=== PATIENT | female | born 1955 | race Caucasian/White ===

== ENCOUNTER 2018-07-13 17:35 | Emergency (ER) | payer OTHER ==
[2018-07-13] MEDS ORDERED: FENTANYL CITR 100 MCG/2 ML ONE (17:48)
[2018-07-13] MEDS ORDERED: ONDANSETRON 4 MG/2 ML VIAL ONE (17:48)
[2018-07-13] MEDS ORDERED: NA CHLORIDE 0.9% 1,000 ML ONE (17:49)
[2018-07-13] MEDS ORDERED: ETOMIDATE 20 MG/10 ML VIAL IV ONE (18:34)
--- NOTE | 2018-07-13 19:38 | RAD REPORT ---
EXAM DESCRIPTION: RAD - Wrist Right 3 View - 07/13/2018 6:08 pm CLINICAL HISTORY: Fall, wrist pain COMPARISON: None. FINDINGS: Transverse fracture of the distal radius is present. There is significant dorsal displacem ent and angulation of the radius fracture fragment. Carpal bones maintain normal positioning to the d isplaced distal fracture fragment. Ulna styloid is fractured. No carpal bone fracture. No foreign bod y. IMPRESSION: Distal radius fracture with significant dorsal displacement and angulation deformity. Ulna styloid fracture.
--- NOTE | 2018-07-13 19:38 | RAD REPORT ---
EXAM DESCRIPTION: RAD - Knee Right 3 View - 07/13/2018 6:09 pm CLINICAL HISTORY: Fall, knee pain COMPARISON: None. FINDINGS: Patella and distal femur are intact.Moderate size lipohemarthrosis is present. Proximal ti trina is fractured. There is an oblique fracture plane creating a large medial tibial plateau fracture fragment. Fracture involves the tibial spine and lateral tibial plateau extending inferiorly into the metaphyseal diaphyseal junction. There is an additional oblique fracture line through the medial tib ia metaphysis. IMPRESSION: Proximal tibia fracture is present. Large fracture plane extends from the lateral tibial plateau near the tibial spine into the metaphyseal diaphyseal junction. Additional fracture plane ex tends obliquely in the medial metaphysis. Moderate sized lipoma hemarthrosis.
--- NOTE | 2018-07-13 19:44 | ER ---
Nurse's Notes [facility] Name: Angie Zuñiga Age: 63 yrs Sex: Female : 1955 Arrival Date: 07/13/2018 Time: 17:36 Bed 23 Private MD: Diagnosis: Displaced distal right radius fracture;Right proximal Tibial fracture Presentation: 07/13 17:37 Presenting complaint: EMS states: pt was helping a friend get out of the boat and fell tl3 back onto right arm. Transition of care: patient was not received from another setting of care. Onset of symptoms. Risk Assessment: Do you want to hurt yourself or someone else? Patient reports no desire to harm self or others. Initial Sepsis Screen: Does the patient meet any 2 criteria? No. Patient's initial sepsis screen is negative. Does the patient have a suspected source of infection? No. Patient's initial sepsis screen is negative. Care prior to arrival: None. 17:37 Method Of Arrival: EMS: [facility] tl3 17:37 Acuity: IMAN 3 tl3 Triage Assessment: 17:39 General: Appears uncomfortable, slender, well groomed, well developed, well nourished, tl3 Behavior is calm, cooperative, appropriate for age. Pain: Complains of pain in right arm. EENT: No signs and/or symptoms were reported regarding the EENT system. Neuro: Level of Consciousness is awake, alert, obeys commands, Oriented to person, place, time, situation, Appropriate for age. Cardiovascular: Capillary refill < 3 seconds in right fingers Patient's skin is warm and dry. Respiratory: Airway is patent Respiratory effort is even, unlabored, Respiratory pattern is regular, symmetrical. GI: No signs and/or symptoms were reported involving the gastrointestinal system. : No signs and/or symptoms were reported regarding the genitourinary system. Derm: No signs and/or symptoms reported regarding the dermatologic system. Musculoskeletal: Bony deformity noted of right forearm/wrist. 20:36 Injury Description: fall in boat. tl3 Historical: - Allergies: 17:39 No Known Allergies; tl3 - Home Meds: 17:39 lisinopril Oral [Active]; meloxicam oral oral [Active]; tl3 - PMHx: 17:39 Hypertension; tl3 - PSHx: 17:39 Hip Replacement; tl3 - Immunization history:: Adult Immunizations up to date. - Social history:: Smoking status: unknown. - Ebola Screening: : No symptoms or risks identified at this time. Screenin:00 Abuse screen: Denies threats or abuse. Nutritional screening: No deficits noted. tl3 Tuberculosis screening: No symptoms or risk factors identified. Fall Risk None identified. Assessment: 18:00 Reassessment: No changes from previously documented assessment. Patient is alert, tl3 oriented x 3, equal unlabored respirations, skin warm/dry/pink. 18:23 Reassessment: No changes from previously documented assessment. Patient and/or family tl3 updated on plan of care and expected duration. Pain level reassessed. Patient is alert, oriented x 3, equal unlabored respirations, skin warm/dry/pink. Zach at bedside discussing POC with patient and family. 18:41 Reassessment: No changes from previously documented assessment. Patient and/or family tl3 updated on plan of care and expected duration. Pain level reassessed. Patient is alert, oriented x 3, equal unlabored respirations, skin warm/dry/pink. Zach speaking to family about a transfer for possible surgery. 20:04 Reassessment: Patient appears in no apparent distress at this time. No changes from tl3 previously documented assessment. Patient and/or family updated on plan of care and expected duration. Pain level reassessed. Patient is alert, oriented x 3, equal unlabored respirations, skin warm/dry/pink. report called to Cecilia King RN. Vital Signs: 17:39 BP 105 / 61; Pulse 80; Resp 18; Pulse Ox 100% ; tl3 18:00 BP 107 / 70; Pulse 71; Resp 18; Pulse Ox 95% on R/A; tl3 18:23 BP 106 / 69; Pulse 78; Resp 18; Pulse Ox 98% ; tl3 18:41 BP 121 / 75; Pulse 80; Resp 18; Pulse Ox 100% ; tl3 20:04 BP 127 / 81; Pulse 82; Resp 18; Pulse Ox 99% ; tl3 ED Course: 17:36 Patient arrived in ED. tl3 17:37 Dot Waddell RN is Primary Nurse. tl3 17:38 Triage completed. tl3 17:39 Zach Garcia PA is PHCP. jr8 17:39 José Manuel Almaraz MD is Attending Physician. jr8 17:39 Arm band placed on left wrist. tl3 17:42 Inserted saline lock: 20 gauge in left forearm, using aseptic technique. ,using aseptic tl3 technique. per Valerie Blood collected. 18:00 Patient has correct armband on for positive identification. Bed in low position. Call tl3 light in reach. Side rails up X 1. Pulse ox on. NIBP on. 18:00 No provider procedures requiring assistance completed. X-ray(s) taken. tl3 18:04 X-ray completed. Portable x-ray completed in exam room. Patient tolerated procedure la2 well. 18:08 XRAY Wrist RIGHT 3 view In Process Unspecified. EDMS 18:08 XRAY Knee RIGHT 3 view In Process Unspecified. EDMS 18:41 Knee immobilizer applied on right knee. Pedal pulse present and within normal limits jb1 before and after application of knee immobilizer. Capillary refill was two seconds before and after application of knee immobilizer. 19:48 Orthoglass splint: Sugar tong splint applied on right arm. rg2 20:34 Verbal reassurance given. bedpan offered before leaving with EMS changed out of swim tl3 suit and put in a gown for comfort. 20:34 Patient transferred, IV remains in place. tl3 Administered Medications: 17:51 Drug: Zofran 4 mg Route: IVP; Site: left forearm; tl3 18:02 Follow up: Response: No adverse reaction tl3 17:51 Drug: NS 0.9% 1000 ml Route: IV; Rate: 75 ml/hr; Site: left forearm; Delivery: Primary tl3 tubing; 20:37 Follow up: IV Status: Completed infusion; IV Intake: 400ml tl3 17:52 Drug: fentaNYL (PF) 50 mcg Route: IVP; Infused Over: 2 mins; Site: left forearm; tl3 18:02 Follow up: Response: No adverse reaction; Pain is decreased tl3 18:44 CANCELLED (Physician Discretion): Etomidate 20 mg IVP once jr8 20:42 Drug: fentaNYL (PF) 50 mcg Route: IVP; Infused Over: 2 mins; Site: left antecubital; tl3 20:42 Follow up: Response: Medication administered at discharge. tl3 Intake: 20:37 IV: 400ml; Total: 400ml. tl3 Outcome: 19:44 ER care complete, transfer ordered by MD. santoro 20:34 Transferred to [facility]. tl3 20:34 Condition: stable 20:34 Instructed on the need for transfer, Demonstrated understanding of instructions. 20:43 Patient left the ED. tl3 Signatures: Dispatcher [employer] EDMS Zaki Styles [place] rg2 Zach Garcia PA PA jr8 Shira Wilson2 Dot Waddell, RN RN tl3
--- NOTE | 2018-07-13 19:44 | EDPHYS ---
Physician Documentation [facility] Name: Angie Zuñiga Age: 63 yrs Sex: Female : 1955 Arrival Date: 07/13/2018 Time: 17:36 Bed 23 Private MD: ED Physician José Manuel Almaraz HPI: 07/13 17:40 This 63 yrs old Female presents to ER via EMS with complaints of Wrist Injury, Knee jr8 Injury. 17:40 Onset: The symptoms/episode began/occurred acutely, today. Modifying factors: The jr8 symptoms are alleviated by nothing, the symptoms are aggravated by movement. Associated signs and symptoms: The patient has no apparent associated signs or symptoms. The patient has not experienced similar symptoms in the past. The patient has not recently seen a physician. Patient was helping with docking boat. Was helping friend out of boat and fell backwards. EMS called after fall for obvious deformity of right wrist. Complains of pain and swelling to right knee as well. Denies hitting head or neck. No LOC . Historical: - Allergies: 17:39 No Known Allergies; tl3 - Home Meds: 17:39 lisinopril Oral [Active]; meloxicam oral oral [Active]; tl3 - PMHx: 17:39 Hypertension; tl3 - PSHx: 17:39 Hip Replacement; tl3 - Immunization history:: Adult Immunizations up to date. - Social history:: Smoking status: unknown. - Ebola Screening: : No symptoms or risks identified at this time. ROS: 17:40 Eyes: Negative for injury, pain, redness, and discharge, ENT: Negative for injury, jr8 pain, and discharge, Neck: Negative for injury, pain, and swelling, Cardiovascular: Negative for chest pain, palpitations, and edema, Respiratory: Negative for shortness of breath, cough, wheezing, and pleuritic chest pain, Abdomen/GI: Negative for abdominal pain, nausea, vomiting, diarrhea, and constipation, Back: Negative for injury and pain, Skin: Negative for injury, rash, and discoloration, Neuro: Negative for headache, weakness, numbness, tingling, and seizure. 17:40 MS/extremity: Positive for decreased range of motion, deformity, pain, swelling, tenderness, of the right wrist and knee. Exam: 17:40 Head/Face: Normocephalic, atraumatic. Eyes: Pupils equal round and reactive to light, jr8 extra-ocular motions intact. Lids and lashes normal. Conjunctiva and sclera are non-icteric and not injected. Cornea within normal limits. Periorbital areas with no swelling, redness, or edema. ENT: Nares patent. No nasal discharge, no septal abnormalities noted. Tympanic membranes are normal and external auditory canals are clear. Oropharynx with no redness, swelling, or masses, exudates, or evidence of obstruction, uvula midline. Mucous membranes moist. Neck: Trachea midline, no thyromegaly or masses palpated, and no cervical lymphadenopathy. Supple, full range of motion without nuchal rigidity, or vertebral point tenderness. No Meningismus. Chest/axilla: Normal chest wall appearance and motion. Nontender with no deformity. No lesions are appreciated. Cardiovascular: Regular rate and rhythm with a normal S1 and S2. No gallops, murmurs, or rubs. Normal PMI, no JVD. No pulse deficits. Respiratory: Lungs have equal breath sounds bilaterally, clear to auscultation and percussion. No rales, rhonchi or wheezes noted. No increased work of breathing, no retractions or nasal flaring. Abdomen/GI: Soft, non-tender, with normal bowel sounds. No distension or tympany. No guarding or rebound. No evidence of tenderness throughout. Back: No spinal tenderness. No costovertebral tenderness. Full range of motion. Skin: Warm, dry with normal turgor. Normal color with no rashes, no lesions, and no evidence of cellulitis. Neuro: Awake and alert, GCS 15, oriented to person, place, time, and situation. Cranial nerves II-XII grossly intact. Motor strength 5/5 in all extremities. Sensory grossly intact. Cerebellar exam normal. Normal gait. 17:40 Musculoskeletal/extremity: Extremities: grossly normal except: noted in the right wrist: pain, swelling, tenderness, Decreased ROM due to deformity. Pulses present in wrist and 2+ with normal sensation. Brisk capillary refill present , noted in the right knee: pain, swelling, tenderness, No obvious deformity. Decreased ROM due to pain , Circulation is intact in all extremities. Sensation intact. Vital Signs: 17:39 BP 105 / 61; Pulse 80; Resp 18; Pulse Ox 100% ; tl3 18:00 BP 107 / 70; Pulse 71; Resp 18; Pulse Ox 95% on R/A; tl3 18:23 BP 106 / 69; Pulse 78; Resp 18; Pulse Ox 98% ; tl3 18:41 BP 121 / 75; Pulse 80; Resp 18; Pulse Ox 100% ; tl3 20:04 BP 127 / 81; Pulse 82; Resp 18; Pulse Ox 99% ; tl3 Procedures: 18:44 Splinting: Splint applied to right wrist using Orthoglass splint, applied by tech. jr8 nurse. Examined by me, post splint application: neurovascular intact, 2+ distal pulses palpable, brisk capillary refill noted, Patient tolerated well. 18:44 Splinting: Splint applied to right knee using knee immobilizer, applied by myself. jrAyah tech. Examined by me, post splint application: neurovascular intact, 2+ distal pulses palpable, brisk capillary refill noted, Patient tolerated well. MDM: 17:39 Patient medically screened. jr8 18:44 Data reviewed: vital signs, nurses notes, radiologic studies, plain films. Data jr8 interpreted: Pulse oximetry: on room air is 100 %. Interpretation: normal. Counseling: I had a detailed discussion with the patient and/or guardian regarding: the historical points, exam findings, and any diagnostic results supporting the discharge/admit diagnosis, radiology results, the need to transfer to another facility. ED course: Discussed case with Dr. Plaza. Patient should be transferred for further evaluation and not be sent home for follow up. 07/13 17:39 Order name: XRAY Wrist RIGHT 3 view; Complete Time: 19:40 8 07/13 17:39 Order name: XRAY Knee RIGHT 3 view; Complete Time: 19:40 jr8 07/13 17:39 Order name: IV; Complete Time: 17:58 jr8 Administered Medications: 17:51 Drug: Zofran 4 mg Route: IVP; Site: left forearm; tl3 18:02 Follow up: Response: No adverse reaction tl3 17:51 Drug: NS 0.9% 1000 ml Route: IV; Rate: 75 ml/hr; Site: left forearm; Delivery: Primary tl3 tubing; 20:37 Follow up: IV Status: Completed infusion; IV Intake: 400ml tl3 17:52 Drug: fentaNYL (PF) 50 mcg Route: IVP; Infused Over: 2 mins; Site: left forearm; tl3 18:02 Follow up: Response: No adverse reaction; Pain is decreased tl3 18:44 CANCELLED (Physician Discretion): Etomidate 20 mg IVP once jr8 20:42 Drug: fentaNYL (PF) 50 mcg Route: IVP; Infused Over: 2 mins; Site: left antecubital; tl3 20:42 Follow up: Response: Medication administered at discharge. tl3 Disposition: 07/14 09:21 Co-signature as Attending Physician, José Manuel Almaraz MD I agree with the assessment and mirza plan of care. Disposition: 07/13/18 19:44 Transfer ordered to [facility]. Diagnosis are Displaced distal right radius fracture, Right proximal Tibial fracture . - Reason for transfer: Higher level of care. - Accepting physician is Dr. Luna. - Condition is Stable. - Problem is new. - Symptoms have improved. Signatures: Dispatcher [employer] EDJosé Manuel Reza MD MD cha Roszak, Josh, PA PA jr8 Dot Waddell RN RN tl3 Corrections: (The following items were deleted from the chart) 07/13 18:44 18:35 Etomidate 20 mg IVP once ordered. jr8 jr8 20:43 19:44 07/13/2018 19:44 Transfer ordered to [facility]. tl3 Diagnosis is Displaced distal right radius fracture; Right proximal Tibial fracture . Reason for transfer: Higher level of care. Accepting physician is Dr. Luna. Condition is Stable. Problem is new. Symptoms have improved. jr8
== END 2018-07-13 20:43 | disposition short-term general hospital (02) ==
LOC: ER 17:35
PROC: 2W3CX1Z Immobilization of Right Lower Arm using Splint (ICD-10-PCS; principal; 2018-07-13)
DX: S52.501A Unspecified fracture of the lower end of right radius, initial encounter for closed fracture (principal); S82.101A Unspecified fracture of upper end of right tibia, initial encounter for closed fracture; W18.39XA Other fall on same level, initial encounter; Y93.89 Activity, other specified; Y92.89 Other specified places as the place of occurrence of the external cause; I10 Essential (primary) hypertension
CPT/HCPCS: 99285; J2405; J3010; J7030